=== PATIENT | male | born 1995 | race Caucasian/White ===

== ENCOUNTER 2023-01-20 06:42 | Emergency (ER) | payer OTHER, SELFPAY ==
[2023-01-20 06:44] VITALS: PULSE 74; RESP 19; O2SAT 100
[2023-01-20 06:45] VITALS: BP 145/90; PULSE 104; RESP 16; TEMP 37.1; O2SAT 99; BMI 25.9
--- NOTE | 2023-01-20 06:45 | EKG12_ITS ---
Test Reason : CP Blood Pressure : / mmHG Vent. Rate : 086 BPM Atrial Rate : 086 BPM P-R Int : 126 ms QRS Dur : 086 ms QT Int : 374 ms P-R-T Axes : 046 091 053 degrees QTc Int : 447 ms Normal sinus rhythm with sinus arrhythmia Rightward axis Borderline ECG Confirmed by MOSHE ANDERSON, RONDA ([id number]), fashion editor [employer] ([id number]) on 01/26/2023 6:49:27 AM Referred By: DIANNE Confirmed By:CORDELIA MESA MD
--- NOTE | 2023-01-20 07:08 | RAD_ITS ---
STUDY: X-RAY CHEST REASON FOR EXAM: Male, 27 years old. 2 week history of chest pain. TECHNIQUE: PA and lateral views of the chest. COMPARISON: None. FINDINGS: EKG electrodes are seen. The lungs are clear and expanded. There is no demonstrated pleural abnormality. Normal size heart. Normal mediastinum and freda. Normal visualized pulmonary arteries. Normal visualized aortic arch and descending thoracic aorta. Normal visualized thoracic spine. Normal visualized ribs, clavicles, and shoulders. There is no demonstrated abnormality of the visualized soft tissue structures of the upper abdomen. RAD/Chest PA and Lateral IMPRESSION: Normal x-ray examination of the chest. Electronically Signed: Alvaro Henao MD at 7:44 EDT ,
--- NOTE | 2023-01-20 07:09 | ED.VIS.CHEST ---
HPI History of Present Illness Chief Complaint: Chest Pain Informant: patient Onset/Context/Timing Onset: Weeks Activity at onset: gradual Timing: Intermittent Quality: Positive for Burning and Dull Location: Right Chest and Left Chest Current Severity: Mild Maximum Severity: Mild Worsened By: Nothing; Not Worsened By Exertion, Movement of Arm, Movement of Torso, Eating, Palpation, Breathing or Coughing Relieved By: Not Relieved By Nothing Associated Symptoms: Negative for Nausea, Vomiting, Diaphoresis, Dyspnea, Cough, Fever, Lightheadedness, Acid Reflux or Palpitations Narrative Narrative: 27-year-old male past medical or surgical history. States he has not seen a doctor for probably 10 years. For last 2 weeks he has had intermittent chest discomfort which goes across his chest on both sides. At times is a tightness at other times as a burning. There is times he is completely pain-free. Its not associated with any type of exertion. Nothing particular makes it better or worse. Is not positional. It does not change with eating or drinking. It does not radiate to his neck arm or jaw. He denies any dyspnea with that. No nausea. No diaphoresis. No history of travel, surgery or immobilization. No history of DVT or PE. No hemoptysis. Pain is not pleuritic. Prior Similar Symptoms: Yes Recent Illness/Hospitalization: No CVD Risk Factors: Negative for Hypertension, Diabetes, Hypercholesterolemia, Family History 1' </=55 or Smoking PE Risk Factors: Negative for Recent Travel/Surgery, Recent Immobilization, Prior DVT or PE, Cancer or OCP + Smoking + >/=35 TAD Risk Factors: Negative for Marfan's Syndrome PFSH PFSH Medical History no medical history no medical history Home Medications NK 01/20/23 [History Last Taken Unknown] Allergy/AdvReac Type Severity Reaction Status Date / Time No Known Allergies Allergy Verified 01/20/23 06:47 Surgical History no surgical history no surgical history Social History Smoking Status: Never smoker ROS ROS ED ROS Narrative Chest discomfort. Denies dyspnea. Denies exertional chest pain. Denies fever or chills. Review of Systems ROS Unobtainable: Denies due to encephalopathy Constitutional Constitutional ED: Denies chills or fever(s) Eyes Eyes: Reports none ENT ENT ED: Denies ear pain Cardiovascular Cardiovascular: Reports as per HPI and chest pain; Denies palpitations or racing heartbeat Respiratory/Chest Respiratory/Chest: Denies cough or dyspnea Gastrointestinal Gastrointestinal: Denies abdominal pain Genitourinary Genitourinary ED: Denies dysuria or hematuria Musculoskeletal Musculoskeletal: Denies arthralgias Integumentary Denies abscess Neurologic Neurologic: Denies headache(s) Psychiatric Psychiatric: Denies anxiety Endocrine Endocrinology: Denies cold intolerance Hematologic/Lymphatic Hematologic/Lymphatic: Denies easy bleeding or easy bruising Allergic/Immunologic Allergic/Immunologic ED: Denies mouth swelling or tongue swelling EXAM Physical Exam Narrative Exam Narrative: 19-year-old male no acute distress. Vital signs are stable afebrile. Pulse ox 100% on room air no signs hypoxia. H EENT exam unremarkable. Neck nontender no JVD. No lymphadenopathy. Lungs clear to auscultation bilaterally. Heart regular rhythm no murmur. Chest wall nontender. Abdomen soft nontender. Abdomen soft and nontender. Normal bowel sounds. No peritoneal signs. Patient moving all 4 extremities. Equal symmetrical radial pulses. Calves are nontender without edema or cords. Normal range of motion. 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 Normal dorsi plantarflexion. Neurologic exam is awake alert with no focal motor deficits. Const Vital Signs: 01/20/23 06:44 01/20/23 06:45 Temperature 98.8 F Temperature Source Temporal Pulse Rate 74 104 H Respiratory Rate 19 H 16 Blood Pressure 145/90 H Blood Pressure Mean 108 Pulse Ox 100 99 Oxygen Delivery Method Room Air Room Air Positive well nourished and well developed; Negative for obese, cachectic, contractures or unkempt General Appearance ED: well developed and NAD; Negative for unkempt, cachectic, contractures or pallor Nutritional Appearance: Negative for cachectic or obese HEENT Reports moist mucous membranes; Denies dry mucous membranes normocephalic and atraumatic; Negative for trauma or tenderness Mouth ED: No dry mucous membranes Mouth: No dry mucous membranes Eyes PERRL and EOMs intact bilaterally General Eye ED: Negative for pale conjunctiva or scleral icterus Neck no lymphadenopathy, supple and no JVD General: Negative for tenderness Chest Wall inspection of chest normal and palpation of chest normal Chest: Negative for tenderness Resp normal respiratory effort and clear to auscultation bilaterally Effort and Inspection: Negative for respiratory distress Auscultation: Negative for rales, rhonchi or wheezes Cardio regular rate, regular rhythm, S1 normal heart sound, S2 normal heart sound and no murmurs Peripheral Pulses: pulses 2+ throughout GI normal to inspection, nondistended, normoactive bowel sounds, soft to palpation, non-tender, non-distended and no masses Auscultation: Negative for hyperactive bowel sounds Palpation: Negative for splenomegaly Rectal Exam: Negative for heme negative stool Back/Spine no CVA tenderness General Back: Negative for CVA tenderness Cervical Spine: Negative for cervical spine tenderness Extremity normal to inspection General Extremety ED: Negative for pulses abnormal General Extremity: Negative for pulses abnormal Neuro oriented x3 and CN's II-XII intact bilaterally Sensorium / Orientation: awake, alert, oriented to person, oriented to place and oriented to time; Negative for confused, lethargic or stuporous Motor Exam: strength 5/5 throughout; Negative for general weakness Psych mental status grossly normal Appearance: Negative for unkempt Attitude: No agitated Mood & Affect: Negative for depressed, anxious or tearful Skin no rashes or lesions noted and no wounds General Skin Exam: Negative for jaundice or pallor Rashes: No rashes noted Trauma: Negative for abrasion or laceration Heart Score History: Slightly/Non-Suspicious ECG: Normal Age: </= 45 years Risk Factors: No Risk Factors Score: 0 MDM MDM MDM Narrative Medical decision making narrative: 27-year-old with atypical, nonexertional, nonreproducible chest pain. Has a normal exam. He has no risk factors for DVT or PE nor has ever had 1. EKG and chest x-ray will be obtained. He does not do any IV drugs clinically this does not sound like endocarditis. Repeat exam at 7:42 AM is unchanged. I went over the patient's normal EKG and chest x-ray. I do not think this is cardiac. He has no risk factors or history of a DVT or PE I do not think lab work would be of any benefit at this time. He has no history of any IV drug use I do not think it is endocarditis. History & Record Review Discussion w/independent historian: Patient Radiography Chest X-Ray - ED: 2 View, Read by ED Physician, Heart, Lungs, Mediastinum, Bony Structures and No Acute Disease Diagnostic Testing: Chest x-ray, 2 views, AP and lateral, interpreted by myself shows no acute abnormality. Normal cardiac silhouette. Normal mediastinum. Normal lung arenas. No infiltrates. No fluid. Rhythm Strip Rhythm Strip: Sinus Rhythm Rate: 86 Ectopy: None EKG Initial EKG: Attestation: I personally reviewed and interpreted this EKG as follows: Interpretation: Sinus Rhythm and No Acute Injury Pattern Comments: Normal sinus rhythm rate 86 no acute signs of TX nor ischemia nor dysrhythmia. Prior EKG tracings: not available for review Differential Diagnosis Chest pain/SOB: pulmonary embolism, ACS, pneumothorax and pneumonia Discharge Plan Triage Chief Complaint: Chest Pain ED Provider: Phi Rodas Dx/Rx/DC Orders Clinical Impression: Chest pain of uncertain etiology Instructions: ED Chest Pain, Uncertain Cause Prescriptions: No Action NK Activity Restrictions/Additional Instructions: Your physical exam is normal as is your EKG and chest x-ray. Motrin and Tylenol for pain. Follow-up with the doctors appointment you have been [place] in the middle of January. Return if you are feeling worse. Disposition Disposition: Home, Self Care
== END 2023-01-20 08:01 | disposition home or self-care (01) ==
PROVIDERS: Emergency Provider Emergency Medicine; Visit Provider Emergency Medicine
DX: R07.9 Chest pain, unspecified (principal)
CPT/HCPCS: 71046; 93005; 99282